=== PATIENT | male | born 1980 | race Caucasian/White ===

== ENCOUNTER 2022-04-02 09:03 | Emergency (ER) | payer SELFPAY ==
[2022-04-02 09:57] VITALS: BP 139/91; PULSE 85; RESP 16; TEMP 36.6; O2SAT 99; BMI 27.1
--- NOTE | 2022-04-02 10:49 | ED.DENTAL ---
HPI - Dental/Oral General Chief complaint: Dental/Oral Stated complaint: broken tooth Time Seen by Provider: 04/02/22 10:05 Source: patient Mode of arrival: Family Vehicle History of Present Illness HPI Narrative: Patient is 41-year-old male who presents with dental pain. He has a filling came out of his left upper molar is this morning while chewing on chips. He was able to go to the store and get [id number] stuff to fail in the area. He is not having any pain or swelling. Wanting antibiotics. He will call his dentist later. Related Data Previous Rx's Medication Instructions Recorded amoxicillin 500 mg capsule 500 mg PO BID #14 caps 04/02/22 Review of Systems Review of Systems Narrative: GENERAL: Denies chills,fever HEENT: See HPI RESPIRATORY: Denies dyspnea, cough, wheezing CARDIOVASCULAR: Denies chest pain, palpitations GASTROINTESTINAL: Denies nausea, vomiting MUSCULOSKELETAL: Denies extremity pain, injury SKIN: No rash, no laceration, no pruritus NEUROLOGIC: Denies weakness, dizziness, headache, numbness 8 point review of systems is negative except for those stated above and HPI Patient History Social History Smoking Status: Current every day smoker Smoking Status: Current every day smoker tobacco type: cigarettes alcohol intake frequency: 0-2 drinks per day Substance Use Type: does not use Exam Initial Vital Signs Initial Vital Signs: Vital Signs Temperature 97.9 F 04/02/22 09:57 Pulse Rate 85 04/02/22 09:57 Respiratory Rate 16 04/02/22 09:57 Blood Pressure 139/91 H 04/02/22 09:57 Pulse Oximetry 99 04/02/22 09:57 Oxygen Delivery Method 04/02/22 09:57 GENERAL: Well-appearing, well-nourished and in no acute distress. HENT: No swelling no pain no erythema CARDIOVASCULAR: peripheral pulses in tact, cap refill <2 sec RESPIRATORY: No respiratory distress, speaks in full sentences without difficulty [ABDOMEN: Soft, nontender, no guarding or rebound] EXTREMITIES: Normal range of motion, no clubbing or edema. Neurovascularly intact NEUROLOGICAL: Cranial nerves II through XII grossly intact. Normal gait and speech. SKIN: Warm, dry, no petechiae, no rashes or lesions. Course Vital Signs Vital signs: Vital Signs - 8 hr 04/02/22 09:57 Temperature 97.9 F Pulse Rate 85 Respiratory Rate 16 Blood Pressure 139/91 H Pulse Oximetry 99 Oxygen Delivery Method Room Air Discharge Plan Departure Patient Disposition: Home Clinical Impression: Toothache, Dental caries Instructions: DI for Dental Pain Activity Restrictions/Additional Instructions: *You have been diagnosed with dental pain *What to do: Please see a dentist so your tooth can be properly fit *Continue to take medications as directed Amoxicillin 500 mg twice a day Ibuprofen 600 mg every 6-8 hours if needed for [id number] *Follow up with your primary care provider in 2-3 days or call [phone] *Return to ER if you should have increasing pain swelling red [or] any new, worsening or concerning symptoms Prescriptions: New amoxicillin 500 mg capsule 500 mg PO BID Qty: 14 0RF Visit Report Forms: Patient Portal/API
== END 2022-04-02 11:06 | disposition home or self-care (01) ==
PROVIDERS: Emergency Provider Emergency Medicine
DX: K08.89 Other specified disorders of teeth and supporting structures (principal); K02.9 Dental caries, unspecified
CPT/HCPCS: 99281